=== PATIENT | female | born 1985 | race Caucasian/White ===

== ENCOUNTER 2020-12-16 09:32 | Outpatient (CLI) | payer OTHER, SELFPAY ==
[2020-12-16 09:41] LABS: BASOPHILS % (AUTO) 0.4 % (0.0-2.0); EOSINOPHILS % (AUTO) 0.8 % (0.0-4.0); HEMATOCRIT 38.2 % (36-48); HEMOGLOBIN 12.9 g/dL (12.0-16.0); LYMPHOCYTES # (AUTO) 1.5 K/uL (2.5-16.5); LYMPHOCYTES % (AUTO) 27.5 % (20.5-51.1); MEAN CORPUSCULAR HEMOGLOBIN 29 pg (27-31); MEAN CORPUSCULAR HGB CONC 34 g/dL (33-37); MEAN CORPUSCULAR VOLUME 85.2 fL (80-94); MONOCYTES # (AUTO) 0.4 K/uL (0.8-1.0); NEUTROPHILS # (AUTO) 3.5 K/uL (1.8-7.7); NEUTROPHILS % (AUTO) 64.3 % (42.2-75.2); PLATELET COUNT (AUTO) 186 K/uL (140-450); RED BLOOD CELL COUNT(AUTO) 4.48 MIL/uL (4.20-5.40); RED CELL DISTRIBUTION WIDTH 13.8 % (11.6-13.7); WHITE BLOOD COUNT (AUTO) 5.5 K/uL (4.8-10.8)
[2020-12-16 09:57] LABS: ALBUMIN 3.8 g/dL (3.4-5.0); ANION GAP 11.2 (8-16); CARBON DIOXIDE 28.2 mmol/L (21-32); CREATININE 0.9 mg/dL (0.6-1.3); POTASSIUM 4.4 mmol/L (3.5-5.1); TOTAL BILIRUBIN 0.9 mg/dL (0.0-1.0)
== END 2020-12-16 23:59 | disposition home or self-care (01) ==
LOC: MLB 09:32 → EDSTATUS 12-19 09:00
PROVIDERS: ATTEND Obstetrics & Gynecology
DX: U07.1 COVID-19 (principal)
CPT/HCPCS: 36415; 80053; 84703; 85025

== ENCOUNTER 2021-01-02 07:57 | Day surgery (SDC) | payer OTHER ==
[~2021-01-02] VITALS: Ht 175.3 cm; Wt 70.8 kg
[2021-01-02] MEDS ORDERED: METOCLOPRAMIDE 10 MG/2 ML INJ VIAL ONE (10:00)
[2021-01-02] MEDS ORDERED: GLYCOPYRROLATE 0.2 MG/ML VIAL ONE (10:00)
[2021-01-02] MEDS ORDERED: SUCCINYLCHOLINE CHLORIDE 200 MG/10 ML VIAL IVP ONE (10:00)
[2021-01-02] MEDS ORDERED: NEOSTIGMINE 1:1000 10 MG/10 ML VIAL ONE (10:00)
[2021-01-02] MEDS ORDERED: SEVOFLURANE 250 ML BTL INH ONE (10:00)
[2021-01-02] MEDS ORDERED: KETOROLAC 30 MG/ML VIAL ONE (10:00)
[2021-01-02] MEDS ORDERED: PROPOFOL 200 MG/20 ML VIAL IV ONE (10:00)
[2021-01-02] MEDS ORDERED: ceFAZolin 1,000 MG VIAL ONE (10:00)
[2021-01-02] MEDS ORDERED: ePHEDrine 50 MG/ML VIAL ONE (10:00)
[2021-01-02] MEDS ORDERED: DEXAMETHASONE 4 MG/ML VIAL ONE (10:00)
[2021-01-02] MEDS ORDERED: LIDOCAINE 2% 100 MG/5 ML SYR IVP ONE (10:00)
[2021-01-02] MEDS ORDERED: fentaNYL citrate 0.05 MG/ML VIAL ONE (10:00)
[2021-01-02] MEDS ORDERED: ONDANSETRON 4 MG/2 ML VIAL ONE (10:00)
[2021-01-02] MEDS ORDERED: ROCURONIUM 50 MG/5 ML VIAL IV ONE (10:00)
[2021-01-02] MEDS ORDERED: MEPERIDINE 25 MG/ML SYR ONE (10:00)
[2021-01-02] MEDS ORDERED: LACTATED RINGERS 1,000 ML IV SCH (10:25)
[2021-01-02] MEDS ORDERED: oxyCODONE/APAP 5/325 MG 1 TAB TAB PO PRN (10:25)
[2021-01-02] MEDS ORDERED: diphenhydrAMINE 50 MG/ML VIAL IVP PRN (10:25)
[2021-01-02] MEDS ORDERED: MEPERIDINE 25 MG/ML SYR IVP PRN (10:25)
[2021-01-02] MEDS ORDERED: fentaNYL citrate 0.05 MG/ML VIAL IVP PRN (10:25)
[2021-01-02] MEDS ORDERED: ONDANSETRON 4 MG/2 ML VIAL IVP PRN (10:25)
[2021-01-02] MEDS ORDERED: BUPIVACAINE-MPF/EPI 0.5% 30 ML VIAL INJ ONE (10:45)
== END 2021-01-02 13:14 | disposition home or self-care (01) ==
LOC: MMU 07:57 → MDS 07:57
PROVIDERS: ATTEND Obstetrics & Gynecology
DX: D27.1 Benign neoplasm of left ovary (principal); Z98.51 Tubal ligation status; Z98.890 Other specified postprocedural states
CPT/HCPCS: 58661; 88307; J0330; J0690; J1100; J1885; J2001; J2175; J2405; J2704; J2710; J2765; J3010; J3490; J7120